=== PATIENT | female | born 1965 | race Caucasian/White ===

== ENCOUNTER 2017-10-12 11:43 | Outpatient (CLI) ==
--- NOTE | 2017-10-12 13:31 | DI ---
Exam: Five x-rays of the lumbar spine. Comparison: None available. Reason for exam: Back pain. FINDINGS: No acute fracture or malalignment. The joint spaces are well maintained. The imaged osse ous structures appear grossly unremarkable without acute fracture. There is relative preservation of the lumbar lordotic curve. Impression: No acute fracture or malalignment is seen within the lumbar spine.
== END 2017-10-12 11:44 | disposition home or self-care (01) ==
LOC: RAD 11:43
PROVIDERS: ATTEND Family Medicine
DX: M54.5 Low back pain (principal)

== ENCOUNTER 2017-10-17 08:01 | Outpatient (CLI) ==
--- NOTE | 2017-10-17 09:04 | CT ---
EXAM: CT scan abdomen pelvis without contrast HISTORY: Hematuria Low back pain COMPARISON: None. FINDINGS: Contiguous axial images obtained through the abdomen pelvis without contrast utilizing 3-m m collimation. Sagittal and coronal reconstructions were imaged reviewed.. There is a small focus o f atelectasis or scarring posteromedially right lung base. There is a 5 mm nodule the left lung base which merits follow-up. The gallbladder is fluid filled without cholelithiasis. Liver, pancreas, spleen and adrenal glands h ave normal unenhanced CT appearance.. Atherosclerotic changes are seen involving the aorta without a neurysm formation. The left kidney is morphologically normal. There are several punctate nonobstruc tive right-sided calculi.. There is normal retrocecal appendix.. Postoperative changes are seen wit hin the right lower quadrant. There is normal uterus. There is no free fluid.. There is a small um bilical hernia containing only fat. Bone windows reveals no evidence of lytic or blastic lesions. IMPRESSION: ASVD without aneurysm. Nonobstructive right-side nephrolithiasis. Normal appendix. Postoperative changes right lower quadrant.
== END 2017-10-17 08:02 | disposition home or self-care (01) ==
LOC: RAD 08:01
PROVIDERS: ATTEND Family Medicine
DX: R31.9 Hematuria, unspecified (principal); M54.5 Low back pain
CPT/HCPCS: 74176

== ENCOUNTER 2017-10-24 14:35 | Outpatient (CLI) ==
--- NOTE | 2017-10-25 15:33 | MRI ---
EXAM: Lumbar spine MRI without contrast. HISTORY: Back pain and sciatica. COMPARISON: Lumbar spine radiographs 10/12/[address] abdomen and pelvis 10/17/2017. TECHNIQUE: Multiplanar, multisequence MR images were acquired lumbar spine without contrast. FINDINGS: Conus medullaris ends at L1 and has normal signal intensity. There is mild thoracolumbar dextroscoliosis centered at L1-2. The lumbar vertebra are normal in height and intrinsic bone marrow signal. There is minor lumbar ventral spondylosis and disc desiccation at L2-3 and L5-S1 and mild d isc space narrowing at L5-S1. The partially visualized liver, spleen and kidneys are unremarkable. There are no paravertebral mass es. L1-2: A small benign intraosseous hemangiomas present in the L1 vertebra. There is a small posterio r disc bulge without central canal stenosis. L2-3: There is a minor disc bulge that effaces the ventral thecal sac and minimally narrows the infe rior right neural foramen. There is no central canal stenosis or foraminal stenosis. L3-4: There is a minor disc bulge that minimally narrows the inferior left neural foramen without ce ntral canal stenosis or foraminal stenosis. L4-5: There is a minor disc bulge that minimally effaces the ventral thecal sac and narrows the infe rior left neural foramen. There is minor left hypertrophic facet arthropathy and mild bilateral liga mentum flavum hypertrophy. There is minor left foraminal stenosis. L5-S1: There is a minor posterior disc bulge and left facet arthropathy. There is no central canal stenosis or foraminal stenosis. IMPRESSION: 1. Mild thoracolumbar dextroscoliosis centered at L1-2. 2. Minor lumbar degenerative spondylosis. 3. No lumbar disc herniations, pars interarticularis defects or central canal stenosis.
== END 2017-10-24 14:36 | disposition home or self-care (01) ==
LOC: RAD 14:35
PROVIDERS: ATTEND Family Medicine
DX: M54.5 Low back pain (principal); G89.29 Other chronic pain

== ENCOUNTER 2018-10-09 09:43 | Outpatient (CLI) ==
--- NOTE | 2018-10-09 12:48 | DI ---
EXAM: Two view(s)chest. HISTORY: Cough. COMPARISON: None. TECHNIQUE: Two view(s) of the chest. FINDINGS: Lungs:There are postoperative change in the cervical spine. The lung voulmes are normal. The lungs are clear without consolidation or effusion. There are no suspicious nodules. The pulmonary interstitium is within normal limits. There is no pneumothorax. Cardiovascular: The heart size and pulmonary vasculature is normal.. The aorta is unremarkable. Shae/Mediastinum: Normal. Osseous structures. Normal for age. IMPRESSION: No acute pulmonary disease.
== END 2018-10-09 09:44 | disposition home or self-care (01) ==
LOC: RAD 09:43
PROVIDERS: ATTEND Family Medicine
DX: R05 Cough (principal)

== ENCOUNTER 2018-12-14 10:53 | Outpatient (CLI) ==
--- NOTE | 2018-12-14 11:29 | DI ---
EXAM: Third digit of the right hand three views HISTORY: Mass of the finger. FINDINGS / IMPRESSION: The bone and joint structures are within normal limits. No fracture or bony deformity. Soft tissue prominence at the mid finger may represent superimposition artifact. An 9 mm soft tissue nodule not excluded at this level. No soft tissue radiopaque foreign body or gas collec tion.
== END 2018-12-14 10:54 | disposition home or self-care (01) ==
LOC: RAD 10:53
PROVIDERS: ATTEND Family Medicine
DX: R22.31 Localized swelling, mass and lump, right upper limb (principal)